=== PATIENT | female | born 1940 | race Caucasian/White ===

== ENCOUNTER 2016-07-25 12:58 | Emergency (ER) | payer MEDICARE ==
[~2016-07-25] VITALS: Ht 167.6 cm; Wt 62.0 kg
[~2016-07-25 12:58] MED LIST: ACIDOPHILU1 PO; ASPIRIN CHEWABL81 MG PO; B12 PO; CALCI17 OR; CELEXA10 MG PO; CIPRO500 MG PO; CIPROFLOXACIN500 M1 PO; CIPROFLOXACN250 MG PO; CIPROFLOXACN500 MG PO; CLONIDINE0.1 MG PO; CRANBERRY PLUS VITA1 PO; CRANBERRY400 M1 PO; CRESTOR40 MG PO; DOXYCYCL HYC100 M3 PO; DOXYCYCL HYC100 MG PO; EQ IBUPROFEN200 MG PO; FISH OIL500 MG OR; FLEXERIL5 M1 PO; GLIME4T PO; GLUCOPHAGE500 MG PO; GLYBURIDE2.5 MG PO; LISINOP/HCTZ1 TA1 PO; LISINOPRIL/HYDR1 TA1 PO; LISINOPRIL40 MG PO; MACRODANTIN100 MG PO; MAGNESIUM250 MG OR; MECLIZINE25 MG PO; METFORMIN500 M1 PO; METFORMIN850 MG PO; MIRALAX3350 NF PO; MULTI VIT PO; NAPROXEN SOD220 M3 PO; PEPCID AC PO; PLAVIX75 MG PO; PREDNISONE10 MG PO; PYRIDIUM200 MG PO; SIMVASTATIN20 MG PO; STRATTERA40 MG PO; SURFAK240 MG/CAP PO; ULTRAM50 M1 PO; VITAMIN D400 UNI1 OR; ZESTRIL10 M1 PO; ZOCOR20 M1 PO; ZPAK PO; [UNRECOGNIZED DRUG - OTHER] PO; catapres PO
[2016-07-25 13:33] LABS: HEMATOCRIT 37.1 % (37.0-47.0); HEMOGLOBIN 12.3 g/dl (12.0-16.0); IMMATURE GRANULOCYTES 0.3 % (0.0-1.0); MEAN CELL VOLUME 88.8 fL CALC (80.0-100.0); MEAN CORPUSCULAR HGB 29.4 pG CALC (26.0-32.0); MEAN CORPUSCULAR HGB CONC 33.2 g/L CALC (32.0-36.0); NEUT# 6.91 thou/uL (2.00-7.15); RED BLOOD COUNT 4.18 mill/uL (4.20-5.60); RED CELL DISTRI WIDTH 13.2 % (11.5-15.5)
[2016-07-25 13:35] LABS: ALBUMIN 3.7 g/dL (3.2-5.0); ALKALINE PHOSPHATASE 114 u/l (38-126); AMYLASE 54 u/l (30-110); ANION GAP 14 (6-22 (CALC)); BILIRUBIN, TOTAL 0.3 mg/dL (0.0-1.4); BUN 13 mg/dL (8-23); BUN/CREATININE RATIO 19 (12-20 (CALC)); CALCIUM 8.9 mg/dL (8.4-10.2); CARBON DIOXIDE 24 mmol/l (22-30); CHLORIDE 104 mmol/l (95-108); CREATININE 0.7 mg/dL (0.5-1.0); GFR > 60 ML/MIN (>=60 (CALC)); GFR FOR AFR.AMER. > 60 ML/MIN (>=60 (CALC)); GLUCOSE 187 mg/dL (82-115); LIPASE 48 u/l (23-300); POTASSIUM 4.5 mmol/l (3.5-5.1); SGOT/AST 15 u/l (9-36); SGPT/ALT 22 u/l (11-66); SODIUM 138 mmol/l (137-146); TOTAL PROTEIN 6.9 g/dL (6.3-8.2)
[2016-07-25 13:47] LABS: MYOGLOBIN 12 ng/mL (0 - 62)
[2016-07-25] MEDS ORDERED: ZOFRAN ODT4 MG PO (15:40)
[2016-07-25 16:27] VITALS: BP 181/75
== END 2016-07-25 16:28 | disposition home or self-care (01) ==
LOC: ED 12:58
PROVIDERS: Emergency Medicine
DX: R11.0 Nausea (principal); R53.1 Weakness; R94.31 Abnormal electrocardiogram [ECG] [EKG]; R55 Syncope and collapse; I10 Essential (primary) hypertension; I25.810 Atherosclerosis of coronary artery bypass graft(s) without angina pectoris; Z95.1 Presence of aortocoronary bypass graft; Z86.73 Personal history of transient ischemic attack (TIA), and cerebral infarction without residual deficits

== ENCOUNTER 2016-12-21 19:53 | Emergency (ER) | payer MEDICARE ==
[~2016-12-21] VITALS: Ht 167.6 cm; Wt 63.6 kg
[~2016-12-21 19:53] MED LIST changes: +ZOFRAN ODT4 MG PO
[2016-12-21] MEDS ORDERED: DONEPEZIL5 MG PO (20:24)
[2016-12-21] MEDS ORDERED: TRIMETHOPRIM100 MG PO (20:26)
[2016-12-21 20:58] LABS: HEMOGLOBIN 12.8 g/dl (12.0-16.0); IMMATURE GRANULOCYTES 0.6 % (0.0-1.0); MEAN CELL VOLUME 90.5 fL CALC (80.0-100.0); MEAN CORPUSCULAR HGB 29.7 pG CALC (26.0-32.0); MEAN CORPUSCULAR HGB CONC 32.8 g/L CALC (32.0-36.0); NEUT# 6.13 thou/uL (2.00-7.15); RED BLOOD COUNT 4.31 mill/uL (4.20-5.60); RED CELL DISTRI WIDTH 12.6 % (11.5-15.5)
[2016-12-21 21:10] LABS: PROTHROMBIN TIME 10.4 SECONDS (9.0-12.5)
[2016-12-21 21:14] LABS: ALBUMIN 4.6 g/dL (3.2-5.0); ALKALINE PHOSPHATASE 100 u/l (38-126); ANION GAP 20 (6-22 (CALC)); BILIRUBIN, TOTAL 0.7 mg/dL (0.0-1.4); BUN 19 mg/dL (8-23); BUN/CREATININE RATIO 19 (12-20 (CALC)); CALCIUM 9.9 mg/dL (8.4-10.2); CARBON DIOXIDE 22 mmol/l (22-30); CHLORIDE 101 mmol/l (95-108); GFR 54 ML/MIN (>=60 (CALC)); GFR FOR AFR.AMER. > 60 ML/MIN (>=60 (CALC)); GLUCOSE 208 mg/dL (82-115); SGOT/AST 28 u/l (9-36); SGPT/ALT 22 u/l (11-66); SODIUM 139 mmol/l (137-146); TOTAL PROTEIN 8.5 g/dL (6.3-8.2)
[2016-12-21 21:25] LABS: MYOGLOBIN 29 ng/mL (0 - 62)
[2016-12-21 22:36] LABS: URINE BILIRUBIN - DIPSTICK NEGATIVE (NEGATIVE); URINE BLOOD DIPSTICK SMALL (NEGATIVE); URINE CLARITY TURBID; URINE COLOR YELLOW; URINE GLUCOSE - DIPSTICK NEGATIVE (NEGATIVE); URINE KETONE NEGATIVE (NEGATIVE); URINE PH 5.5 (4.5-8.0); URINE PROTEIN - DIPSTICK NEGATIVE (NEG-TRACE); URINE UROBILINOGEN - DIPSTICK 0.2 E.U./dL (0.2)
[2016-12-21 22:38] LABS: URINE LEUK ESTERASE LARGE (NEGATIVE); URINE NITRITE - DIPSTICK POSITIVE (Negative)
[2016-12-21 22:43] LABS: URINE BACTERIA MODERATE hpf; URINE SQUAMOUS EPITHELIAL CELL MODERATE EPI/hpf (0-FEW); URINE WBC 50-100 WBC/hpf (0-5)
[2016-12-22] MEDS ORDERED: Levaquin PO (00:07)
[2016-12-22 00:30] VITALS: BP 142/64
== END 2016-12-22 00:40 | disposition home or self-care (01) ==
LOC: ED 19:53
PROVIDERS: Emergency Medicine
DX: N39.0 Urinary tract infection, site not specified (principal); E11.9 Type 2 diabetes mellitus without complications; Z79.84 Long term (current) use of oral hypoglycemic drugs; R53.1 Weakness; I10 Essential (primary) hypertension; Z86.73 Personal history of transient ischemic attack (TIA), and cerebral infarction without residual deficits; I25.810 Atherosclerosis of coronary artery bypass graft(s) without angina pectoris; Z95.1 Presence of aortocoronary bypass graft; Z95.5 Presence of coronary angioplasty implant and graft; B96.1 Klebsiella pneumoniae [K. pneumoniae] as the cause of diseases classified elsewhere

== ENCOUNTER 2017-03-12 13:20 | Emergency (ER) | payer MEDICARE ==
[~2017-03-12] VITALS: Ht 167.6 cm; Wt 68.2 kg
[~2017-03-12 13:20] MED LIST changes: +DONEPEZIL5 MG PO; +Levaquin PO; +TRIMETHOPRIM100 MG PO
[2017-03-12] MEDS ORDERED: METFORMIN500 M2 PO (14:53)
[2017-03-12] MEDS ORDERED: AMLODIPINE5 MG PO (14:54)
[2017-03-12] MEDS ORDERED: ATORVASTATIN CA40 MG PO (14:54)
[2017-03-12] MEDS ORDERED: COZAAR50 MG PO (14:54)
[2017-03-12 17:55] VITALS: BP 131/74
== END 2017-03-12 17:55 | disposition home or self-care (01) ==
LOC: ED 13:20
PROC: 0HQ1XZZ Repair Face Skin, External Approach (ICD-10-PCS; principal; 2017-03-12)
DX: S01.81XA Laceration without foreign body of other part of head, initial encounter (principal); I25.10 Atherosclerotic heart disease of native coronary artery without angina pectoris; I10 Essential (primary) hypertension; E11.9 Type 2 diabetes mellitus without complications; M19.90 Unspecified osteoarthritis, unspecified site; W17.89XA Other fall from one level to another, initial encounter; Y92.029 Unspecified place in mobile home as the place of occurrence of the external cause; Z95.1 Presence of aortocoronary bypass graft; Z95.5 Presence of coronary angioplasty implant and graft; Z86.73 Personal history of transient ischemic attack (TIA), and cerebral infarction without residual deficits

== ENCOUNTER 2017-03-23 20:20 | Emergency (ER) | payer MEDICARE ==
[~2017-03-23] VITALS: Ht 167.6 cm; Wt 70.0 kg
[~2017-03-23 20:20] MED LIST changes: +AMLODIPINE5 MG PO; +ATORVASTATIN CA40 MG PO; +COZAAR50 MG PO; +METFORMIN500 M2 PO
[2017-03-23 21:00] VITALS: BP 130/78
== END 2017-03-23 21:00 | disposition home or self-care (01) ==
LOC: ED 20:20
DX: S01.81XD Laceration without foreign body of other part of head, subsequent encounter (principal)

== ENCOUNTER → 2018-06-19 | Outpatient (REF) | END | disposition home or self-care (01) | DRG 639 | LOC: LAB 14:26 | PROVIDERS: ATTEND Internal Medicine | DX: E11.65 Type 2 diabetes mellitus with hyperglycemia (principal); I10 Essential (primary) hypertension; I25.10 Atherosclerotic heart disease of native coronary artery without angina pectoris; K21.9 Gastro-esophageal reflux disease without esophagitis ==